=== PATIENT | male | born 1995 | race African-American/Black ===

== ENCOUNTER 2024-06-15 13:54 | Emergency (ER) | payer MEDICAID ==
[~2024-06-15] VITALS: Ht 180.3 cm; Wt 81.0 kg
[2024-06-15 14:05] VITALS: O2SAT 98
[2024-06-15 14:30] VITALS: TEMP 98.8; O2SAT 99
[2024-06-15 14:48] VITALS: BP 116/67; PULSE 91; RESP 18
[2024-06-15] MEDS: ACETAMINOPHEN 325MG TABLET PO NR (14:48)
[2024-06-15] MEDS: IBUPROFEN 400MG TABLET PO NR (14:48)
[2024-06-15] MEDS: ACETAMINOPHEN 325MG TABLET PO ONE (15:54)
[2024-06-15] MEDS: AMOXICILLIN/POTASSIUM CLAVULANATE 875/125MG TAB PO NR (17:45)
[2024-06-15] MEDS ORDERED: AMOX1TAB16 MT (17:57)
[2024-06-15] MEDS ORDERED: IBUP-2030 MT (17:57)
[2024-06-15] MEDS ORDERED: TRAM50TA3 MT (18:11)
[2024-06-15] MEDS ORDERED: TRAMADOL 50MG TABLET PO ONE (18:15)
[2024-06-15] MEDS: BACITRACIN ZINC OINT UDPKT TOP ONE (18:15)
== END 2024-06-15 18:54 | disposition home or self-care (01) ==
LOC: ER 13:54
DX: S02.2XXA Fracture of nasal bones, initial encounter for closed fracture (principal); S02.32XA Fracture of orbital floor, left side, initial encounter for closed fracture; W18.30XA Fall on same level, unspecified, initial encounter; Y93.89 Activity, other specified; Y92.89 Other specified places as the place of occurrence of the external cause; Y99.8 Other external cause status
CPT/HCPCS: 70486; 73560; 99284